=== PATIENT | female | born 1985 | race Caucasian/White ===

== ENCOUNTER → 2016-03-31 | Outpatient (CLI) | payer OTHER ==
[2016-04-01 14:16] LABS: CONTROL LINE INT CTR LINE PRESENT; HIV SCRN NEGATIVE (NEGATIVE); HIV SCRN1 NEGATIVE (NEGATIVE)
== END ==
LOC: M LAB 15:21
PROVIDERS: ATTEND Nurse Practitioner Women's Health
DX: Z11.3 Encounter for screening for infections with a predominantly sexual mode of transmission (principal)

== ENCOUNTER → 2016-05-04 | Outpatient (CLI) | payer OTHER ==
--- NOTE | 2016-05-04 10:49 | REP ---
Clinical: Right lower quadrant pelvic pain . Technique: Transabdominal pelvic ultrasound followed by transvaginal examination for better evaluation of the endometrium and adnexa with color Doppler evaluation of the ovaries. Findings: Bladder is unremarkable and measures 6.7 x 3.4 x 5.0 cm . Normal anteverted uterus measures 9.8 x 5.1 x 6.3 cm . The endometrial complex measures 8.4 mm thickness. No discrete uterine or endometrial abnormalities are appreciated. Bilateral ovaries are normal in appearance and vascularity without evidence for torsion. Right ovary measures 4.5 x 2.4 x 2.9 cm ; R I = 0.58 . Left ovary measures 4.1 x 2.0 x 2.7 cm with 2.0 cm simple cyst ; R I = 0.48 . No pelvic fluid or adnexal mass lesion. . Impression: 1. 2 cm left ovarian cyst likely physiologic. 2. Otherwise normal examination Signed by Derek Pearson MD 05/04/2016 10:41 A
== END ==
LOC: M LRY 08:29
PROVIDERS: ATTEND Nurse Practitioner Women's Health
DX: R10.31 Right lower quadrant pain (principal)